=== PATIENT | male | born 1990 | race Caucasian/White ===

== ENCOUNTER 2016-09-27 13:26 | Emergency (ER) | payer MEDICAID ==
[2016-09-27 13:43] VITALS: BP 116/69
[2016-09-27] MEDS ORDERED: MOTRIN PO ONE (15:51)
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
== END 2016-09-27 17:05 | disposition home or self-care (01) ==
LOC: ED 13:26
DX: S63.501A Unspecified sprain of right wrist, initial encounter (principal); F12.10 Cannabis abuse, uncomplicated; F17.200 Nicotine dependence, unspecified, uncomplicated; W22.8XXA Striking against or struck by other objects, initial encounter; Y93.89 Activity, other specified; Y99.9 Unspecified external cause status; Y92.89 Other specified places as the place of occurrence of the external cause